=== PATIENT | male | born 1950 | race Caucasian/White ===

== ENCOUNTER → 2019-09-28 11:15 | Outpatient (CLI) | payer MEDICARE, OTHER, SELFPAY ==
--- NOTE | 2019-09-28 11:18 | DI.RAD.S_ITS ---
PROCEDURE: XR LUMBAR SPINE MIN 4V INDICATIONS: progressive LBP TECHNIQUE: 5 views of the lumbar spine were acquired. COMPARISON: None. FINDINGS: Bones: 5 nonrib-bearing vertebrae are present. There is straightening of normal lumbar lordosis and mild rightward curvature of lumbar spine centered at L3-4 level. Degenerative disc disease and bilateral facet arthrosis throughout lumbar spine is seen more prominent at L3-4 and L4-5 levels.. No vertebral body compression fractures. No suspicious bony lesions. Soft tissues: Overlying bowel gas pattern is normal. No suspicious soft tissue calcifications. Oblique images: No pars defects. Suggestion of bilateral neural foraminal narrowing at L3-4 and L4-5 levels are seen slightly worse on the left side. IMPRESSION: Degenerative disc disease throughout lumbar spine. No acute compression fracture or significant spondylolisthesis. Suggestion of bilateral neural foraminal narrowing at L3-4 and L4-5 levels. No gross pars defect. Mild scoliosis as above. Dictated by: Surjit Rodriguez M.D. on 09/28/2019 at 11:44 Approved by: Surjit Rodriguez M.D. on 09/28/2019 at 11:45
== END ==
PROVIDERS: PCP Family Medicine Sports Medicine; Referring Provider Orthopaedic Surgery; Visit Provider Physical Medicine & Rehabilitation
DX: M51.16 Intervertebral disc disorders with radiculopathy, lumbar region (principal); M47.26 Other spondylosis with radiculopathy, lumbar region; M41.9 Scoliosis, unspecified
CPT/HCPCS: 72110

== ENCOUNTER → 2019-10-05 12:39 | Outpatient (CLI) | payer MEDICARE, OTHER, SELFPAY ==
--- NOTE | 2019-10-05 12:41 | DI.MRI.S_ITS ---
PROCEDURE: MR LUMBAR SPINE WO CON INDICATIONS: lumbar radiculopathy TECHNIQUE: Noncontrast sagittal T1 spin echo and T2 fast echo, sagittal STIR, axial T1 and T2 fast spin echo through the lumbar spine. In cases with scoliosis, additional coronal T2 fast spin echo may be performed. COMPARISON: [facility], CR, XR LUMBAR SPINE MIN 4V, 09/28/2019, 11:23. FINDINGS: Image quality: Excellent. Alignment and Curvature: 5 lumbar type vertebral bodies are present by plain film. There is loss of normal lumbar lordosis. Mild grade 1 retrolisthesis of L1 on L2, L2 on L3, L3 on L4, L4 on L5, and L5 on S1. Bone Marrow: Marrow is of normal overall signal. No acute vertebral body compression fractures. Moderate reactive signal within the endplates adjacent to the L3-L4 and L4-L5 intervertebral discs. Mild reactive signal within the endplates adjacent to the L1-L2, L2-L3, and L5-S1 intervertebral discs. Spinal Cord: Conus medullaris terminates at the L1-L2 disc space level. Visualized cord demonstrates normal signal and size. Paraspinous Soft Tissues: No paravertebral masses. L1-L2: Moderate disc height loss and desiccation. Mild diffuse disc bulge with superimposed broad-based right posterolateral protrusion. Mild facet and ligamentum flavum hypertrophy. Mild epidural lipomatosis. Severe canal stenosis. Mild right and moderate left foraminal stenosis. L2-L3: Mild disc desiccation. Mild disc height loss. Mild diffuse disc bulge with superimposed broad-based right posterolateral protrusion. Mild facet and ligamentum flavum hypertrophy. Mild epidural lipomatosis. Moderate canal stenosis. Mild bilateral foraminal stenosis. L3-L4: Moderate disc height loss and desiccation. Mild diffuse disc bulge with superimposed broad-based left posterolateral protrusion. Mild facet and ligamentum flavum hypertrophy. Mild epidural lipomatosis. Severe canal stenosis. Severe left and moderate right foraminal stenosis. Left L3 nerve root compression. L4-L5: Moderate disc height loss and desiccation. Mild diffuse disc bulge/osteophyte with superimposed broad-based right posterolateral protrusion. Mild facet and ligamentum flavum hypertrophy. Mild epidural lipomatosis. Moderate canal stenosis. Moderate left and severe right foraminal stenosis. Right L4 nerve root compression. Right lateral recess stenosis with possible L5 nerve root compression. L5-S1: Moderate disc height loss and desiccation. Mild diffuse disc bulge with superimposed broad-based right posterolateral protrusion. Mild bilateral facet and ligamentum flavum hypertrophy. Mild canal stenosis. Severe right and moderate left foraminal stenosis. Right L5 nerve root compression. IMPRESSION: 1. Multilevel degenerative disc and facet disease, as well as ligamentum flavum hypertrophy and epidural lipomatosis. 2. Multilevel canal stenosis, worst at L3-L4, where there is severe canal stenosis. 3. Multilevel foraminal stenoses, worst at L3-L4, L4-L5, and L5-S1 where there is associated intraforaminal nerve root compression as described above. 4. Right lateral recess stenosis at L4-L5 with associated L5 nerve root compression. 5. Recommend correlation with clinical symptoms to ascertain relevance of these findings. Dictated by: Cynthia Baker M.D. on 10/05/2019 at 14:54 Approved by: Cynthia Baker M.D. on 10/05/2019 at 15:01
== END ==
PROVIDERS: PCP Family Medicine Sports Medicine; Referring Provider Physical Medicine & Rehabilitation; Visit Provider Physical Medicine & Rehabilitation
DX: M51.16 Intervertebral disc disorders with radiculopathy, lumbar region (principal); M51.17 Intervertebral disc disorders with radiculopathy, lumbosacral region; M48.061 Spinal stenosis, lumbar region without neurogenic claudication; M48.07 Spinal stenosis, lumbosacral region
CPT/HCPCS: 72148

== ENCOUNTER → 2019-12-31 15:45 | Outpatient (CLI) | payer MEDICARE, OTHER, SELFPAY ==
[2019-12-31 17:32] LABS: COVID19 -Nasal RAPID Negative (Negative)
== END ==
PROVIDERS: PCP Family Medicine Sports Medicine; Visit Provider Physician Assistant
DX: Z11.59 Encounter for screening for other viral diseases (principal)
CPT/HCPCS: 87635

== ENCOUNTER 2020-01-01 08:04 | Outpatient (CLI) | payer MEDICARE, OTHER, SELFPAY ==
[2020-01-01] VITALS (8 sets, daily range): BP systolic 112–155; BP diastolic 59–77; PULSE 61–66; RESP 13–19; TEMP 36.4; O2SAT 96–99
--- NOTE | 2020-01-01 08:10 | DI.RAD.S_ITS ---
PROCEDURE: PAIN L/S TRANSFORAMINAL INJECT INDICATIONS: SPONDYLOSIS COMPARISON: None. FINDINGS: Fluoroscopic spot filming was performed to verify placement of spinal needles at the right L4-5 level(s), as labeled on the films. Appropriate location(s) of the needle tip(s) was confirmed by injection of iodinated contrast. IMPRESSION: Successful needle tip localization for right-sided transforaminal epidural steroid injection at L4-L5. Dictated by: Leo Cordova M.D. on 01/01/2020 at 10:24 Approved by: Leo Cordova M.D. on 01/01/2020 at 10:25
[2020-01-01] MEDS: fentaNYL 100 MCG/2 ML INJ 50 MCG IV (08:50)
[2020-01-01] MEDS: MIDAZOLAM 5 MG/5 ML VIAL IV (08:50)
[2020-01-01] MEDS: IOPAMIDOL 15 ML VIAL 3 ML INJ (08:54)
[2020-01-01] MEDS: BETAMETHASONE 30 MG/5 ML MDV 6 MG INJ (08:54)
[2020-01-01] MEDS: BUPIVACAINE 0.25% (PF) VIAL 2 ML INJ (08:54)
[2020-01-01] MEDS: DEXAMETHASONE 10 MG/ML VIAL 20 MG INJ (08:54)
--- NOTE | 2020-01-01 09:03 | P.PCN_ITS ---
Date/Time/Diagnoses Date of procedure: 01/01/20 Time of procedure: 09:03 Pre-procedure diagnosis: 1. FORAMINAL STENOSIS WITH LE SYMPTOMS Post-procedure diagnosis: same Procedure Notes Procedure: 1. FLUOROSCOPICALLY GUIDED CONTRAST CONTROLLED TRANSFORAMINAL EPIDURAL STEROID INJECTION - RIGHT L4/5 TFESI Indications: Jadiel is referred by Dr. Coronel for treatment of Foraminal Stenosis with Right LE Symptoms Physician: Oscar Barney Total Fluoroscopy time (seconds): 9 Total sedation minutes: 11 Complications: none Procedure in detail & Post-procedure care: FINDINGS Foraminal Nerve Root Compression secondary to disc disease and facet hypertrophy DESCRIPTION OF PROCEDURE Following review of allergy and review of potential side effects and complications, including, but not necessarily limited to, infection, allergic reaction, local tissue breakdown, stroke, temporary or permanent nerve injury, paralysis, and possible , the patient indicated that the patient understood and agreed to proceed. An informed consent document was signed by the patient, witnessed by a nurse, and placed in the patient's chart. Additionally, other treatment options including medications, modalities, and physical therapy were reviewed with the patient. After review of previous anaesthesic history and IV conscious sedation the patient was deemed safe to proceed with today?s procedure with IV conscious sedation as ASA class II designation. Safety time-out was performed to confirm patient ID, procedure to be performed and site of procedure. IV sedation was accomplished with a combination of 2mg of Versed and 50mcg of Fentanyl was administered by the RN after DO order, titrated to patient comfort during the course of the procedure while the patient remained responsive to all verbal co mmands In the prone position following sterile prep and drape of the lumbar region, the Right L4/5 posterior neuroforamen was identified fluoroscopically. The skin was anesthetized via a 25-gauge 1.5-inch needle with 1% lidocaine solution. At this point, a 25-gauge 3.5-inch spinal needle was atraumatically introduced and advanced under fluoroscopic guidance through the posterior Right L4/5 n euroforamen to approximately the anterior aspect of the canal. Depth was confirmed on lateral view. Following negative aspiration, injection of approximately 1.5cc of Isovue 200 under live fluoroscopy in the AP view confirmed excellent flow along the nerve root, into the epidural space without vascular or intrathecal uptake observed Radiological data, including multiple fluoroscopic views of the lumbosacral spine, reveal a spinal needle at the right L4/5 posterior neuroforamen. Subsequent views show flow of contrast material flowing superiorly and inferiorly along the nerve root confirming epidural flow. Subsequently, a test dose of 1.5 cc of 1% lidocaine solution was administered and patient was observed for two minutes for signs or symptoms of complications, including abdominal pain, shortness of breath, bilateral upper or lower extremity weakness, nausea and vomiting, prior to steroid injection. At this point, a total of 3cc or 20mg of dexamethasone and 6mg of betamethasone was injected without incident. The procedure tolerated the procedure well without signs or symptoms of complications prior to transfer to the recovery area continued monitoring without incident. The patient was then transferred to the recovery area where they were observed for an appropriate time after the injection. The patient reported a VAS score of 7 prior to the procedure and a post-p rocedure VAS of 0. POST OP INSTRUCTIONS The patient was provided a Pain Log to continue to record their response to the target-specific procedure prior to follow-up visit with their referring physician. Additionally, specific post-injection care instructions and a contact number to our office were provided if concerns arise regarding possible complications associated with the procedure are suspected.
--- NOTE | 2020-01-01 10:50 | PC.NURSE ---
ambulated well on own with strong steady gait noted.
== END 2020-01-01 09:23 | disposition home or self-care (01) ==
LOC: RAD 08:09
PROVIDERS: PCP Family Medicine Sports Medicine; Referring Provider Physical Medicine & Rehabilitation; Visit Provider Physical Medicine & Rehabilitation
DX: M51.26 Other intervertebral disc displacement, lumbar region (principal); M54.16 Radiculopathy, lumbar region
CPT/HCPCS: 64483; 99152; J0702; J1100; J2250; J3010